=== PATIENT | female | born 1950 | race Caucasian/White ===

== ENCOUNTER → 2016-03-15 | Day surgery (SDC) | payer OTHER ==
[~2016-03-15] MED LIST: BUPIVACAINE 0.5% 30 ML SDV ONE; DEXAMETHASONE 4 MG/ML VIAL ONE; HYDROCODONE/APAP 5/325 TAB ONE; HYDROCODONE/APAP 5/325 TAB PO ONE; HYDROmorphONE/DILAUDID 1 MG/ML SYR IVP ONE; LIDOCAINE 2% JELLY 5 ML TUBE ONE; NS 500 ML IV ONE; ONDANSETRON 4 MG/2 ML VIAL IVP ONE; ONDANSETRON 4 MG/2 ML VIAL ONE; OXYCODONE/APAP 5/325 TAB PO SCH; PROPOFOL 200 MG/20 ML VIAL ONE; ceFAZolin 1 GM VIAL ONE; ceFAZolin 2 GM/DEXTROSE 100 ML IV ONE; fentaNYL 100 MCG/2 ML INJ ONE
[2016-03-15 17:13] VITALS: BP 156/109; PULSE 72; RESP 18; TEMP 98.1; O2SAT 94
--- NOTE | 2016-03-15 18:11 | EDPHY ---
H & P Stated Complaint: fell off counter/displaced l wrist fx/needs reduction/has xrays HPI/ROS: CHIEF COMPLAINT: Left wrist pain, fall HISTORY OF PRESENT ILLNESS: elapsed the counter earlier this morning striking her left wrist on the counter. States she has had significant pain over the distal left wrist. Some paresthesia of the left thumb. Tried to tough it out through the pain throughout the day until she went to urgent care this afternoon. They diagnosed her with a distal forearm fracture, placed her in a splint, and sent her to the emergency department for reduction. She has significant pain in the wrist and some paresthesias of the left thumb. No injury to the ipsilateral fingers, elbow, shoulder. No head or neck injury. No loss of conscious. No chest or back pain. No other associated complaints or modifying factors. PRIOR ORTHO INJURIES: Multiple knee injuries with arthroscopic surgeries. ESTABLISHED ORTHOPEDIST: Does not remember REVIEW OF SYSTEMS: Ten systems reviewed and are negative unless otherwise noted in the HPI EXAMINATION General Appearance: Alert, no distress Head: normocephalic, atraumatic Eyes: Pupils equal and round, no conjunctival pallor or injection EOMs intact. ENT, Mouth: Mucous membranes moist Neck: Normal inspection . No tenderness or injury Respiratory: No dyspnea or retractions. No distress Cardiovascular: Pulses normal throughout with symmetric radial 2+. Brisk cap refill in all fingers Gastrointestinal: No distention Back: non-tender, no bony abnormalities Neurological: A&O, sensory symmetric, strength symmetric Skin: Warm and dry, no rash Extremities: left upper extremity: Tender to palpation over distal wrist and distal forearm. There is crepitus. She did have a splint in place that I removed. Good cap refill. Paresthesia of the left thumb but no wrist drop. Good opposition of the thumb. No tenderness of the ipsilateral elbow, fingers or shoulder. Psychiatric: Mood and affect normal DIFFERENTIAL DIAGNOSES: Including but not limited to Fracture, fracture with displacement, fracture dislocation, contusion, sprain, hematoma MDM: left wrist injury with distal radius fracture. The patient was sent here for reduction, but upon reviewing the film from that facility I do not feel she warrants a sedation for reduction as it will likely auto sublux. She is neurovascularly intact without any wrist drop. The images are poor, thus I will obtain repeat images here to further delineate the wrist injury, I will also obtain an elbow film to rule out occult fracture. 7:30 p.m. distal radius fracture intra-articular with an associated possible scapholunate dislocation. I originally page Dr. Ramos to discuss. He informed me that will need to speak with Orthopedics. We have paged Dr. Martin for consultation. 8:00 p.m. still awaiting a return phone call from Orthopedics. But I was notified by RN that the patient became significantly more painful after x-ray, appeared pale and vagal. I did evaluate her and she was shaking from her pain. On repeat evaluation at this time, she has more paresthesia anesthesia about the radial and median distributions we administered IV fluids, IV pain medication, oral pain medication and/or monitoring. 8:30 p.m. significant pain in the arm despite the medications administered. . We did administer further medication and moved her to room 11. orthopedics has been contacted and he will see the patient shortly in the emergency department. 9:00 p.m. patient has been evaluated by Dr. Martin in the emergency department. He has Diagnosed her with acute carpal tunnel syndrome. Plans to take the OR for decompression. She is to remain in the ER until OR is ready. 10:00pm For Dr. Martin has personally taken the patient to the operating room for decompression of the acute carpal tunnel syndrome and surgical procedures as he dictates. She was neurovascularly intact upon arrival but her exam did not change while she was here. Her pain was addressed as well as IV fluid. She was admitted to Dr. Martin for urgent decompression. ED Precautions: Worsening pain. Erythema, edema, cyanosis, pallor, paresthesia or anesthesia. SUPERVISION: Patient was evaluated in conjunction with the supervising physician. Please see their note for details. Source: Patient Exam Limitations: No limitations - Personal History Current Tetanus/Diphtheria Vaccine: Yes - Medical/Surgical History Hx Asthma: No Hx Chronic Respiratory Disease: No Hx Diabetes: No Hx Cardiac Disease: No Hx Renal Disease: No Hx Cirrhosis: No Hx Alcoholism: No Hx HIV/AIDS: No Hx Splenectomy or Spleen Trauma: No Other PMH: knee surgery/appy - Social History Smoking Status: Never smoked Constitutional: Initial Vital Signs Temperature (C) 98.1 F 03/15/16 17:09 Heart Rate 72 03/15/16 17:09 Respiratory Rate 18 03/15/16 17:09 Blood Pressure 156/109 H 03/15/16 17:09 O2 Sat (%) 94 03/15/16 17:09 O2 Delivery Mode Room Air Allergies/Adverse Reactions: codeine Allergy (Verified 03/15/16 17:08) Sulfa (Sulfonamide Antibiotics) Allergy (Verified 03/15/16 17:07) Azithromycin Allergy (Uncoded 03/15/16 17:07) Home Medications: Medication Instructions Recorded NK [No Known Home Meds] 03/15/16 Medical Decision Making - Data Points Medications Given: Discontinued Medications Acetaminophen/Hydrocodone Bitart (Dunbar 5/325) 2 tab PO EDNOW ONE Stop: 03/15/16 19:36 Last Admin: 03/15/16 19:35 Dose: 2 tab Hydromorphone HCl (Dilaudid) 1 mg IVP EDNOW ONE Stop: 03/15/16 20:32 Last Admin: 03/15/16 20:38 Dose: 1 mg Sodium Chloride (Ns) 500 mls @ 0 mls/hr IV ONCE ONE PRN Reason: As Directed Stop: 03/15/16 19:37 Last Admin: 03/15/16 19:47 Dose: 500 mls Morphine Sulfate (Morphine) 4 mg IVP EDNOW ONE Stop: 03/15/16 19:36 Last Admin: 03/15/16 19:47 Dose: 4 mg Ondansetron HCl (Zofran) 4 mg IVP EDNOW ONE Stop: 03/15/16 19:36 Last Admin: 03/15/16 19:47 Dose: 4 mg Departure - Departure Disposition: [facility] Clinical Impression: Distal radial fracture Qualifiers: Encounter type: initial encounter Fracture type: closed Fracture morphology: Colles' Laterality: left Qualifier Code: (S52.532A) Colles' fracture of left radius, initial encounter for closed fracture Scapho-lunate dissociation Qualifiers: Laterality: left Qualifier Code: (M25.332) Other instability, left wrist Acute carpal tunnel syndrome Qualifiers: Laterality: left Qualifier Code: (G56.02) Carpal tunnel syndrome, left upper limb Condition: Good Referrals: Marlen Love MD [Primary Care Provider] - As per Instructions
--- NOTE | 2016-03-15 18:46 | DX ---
Left Elbow, Three Views History: Pain post trauma. Fall. Findings: No fracture, effusion or dislocation is identified. Impression: Nothing acute identified.
--- NOTE | 2016-03-15 18:49 | DX ---
Left Wrist, 4 views including a navicular view History: Pain post trauma. Findings: There is an acute intra-articular Colles' fracture of the distal radius. There is slight do rsal angulation of the distal radius. The ulnar styloid is intact. There is mild widening of the join t between the scaphoid and the lunate suggesting a scapholunate ligament injury. There is mild dorsal angulation of the lunate suggesting possible DISI. Impression: Intra-articular Colles' fracture. Sprain or tear of the scapholunate ligament.
--- NOTE | 2016-03-15 22:38 | GHP ---
[f rep st] HISTORY AND PHYSICAL DATE OF ADMISSION: 03/15/2016 CHIEF COMPLAINT: Left wrist pain, numbness and tingling. HISTORY OF PRESENT ILLNESS: The patient is a pleasant 65-year-old female who presents today for evaluation of a left wrist injury. She states she initially injured this wrist earlier today, when she fell, striking a counter. She states that she had significant left wrist pain over the distal portion of her radius. She denies any significant numbness or tingling at the time of injury. Initially, the patient tried to manage her pain throughout the day, however, she eventually went to Urgent Care this afternoon for evaluation. At that time , radiographs were taken showing a distal radius fracture with interarticular extension. At that time, the patient was sent to the emergency room to have this fracture reduced. Upon presentation to the emergency department, radiographs were taken. At which time, the patient states she had a significant increase in her pain and began to note some significant paresthesias of the left thumb, index and middle fingers. She denies any injury to the ipsilateral fingers, elbow and shoulder. She denies head or neck injury. She denies any loss of consciousness or syncope. She has no additional concerns or complaints at this time. PAST MEDICAL HISTORY: None. The patient states she has no significant past medical history. PAST SURGICAL HISTORY: This is significant for three past eye surgeries and an appendectomy, section, three arthroscopic knee surgeries and a tonsillectomy. CURRENT MEDICATIONS: None, the patient denies any current medication use though does note she uses ibuprofen on a p.r.n. basis for occasional headaches. ALLERGIES: Patient reports an allergy to sulfa medications which cause a rash, azithromycin unknown reaction and codeine which also causes a rash though patient states that she has not taken this medication for quite some time. SOCIAL HISTORY: The patient denies any current tobacco use, though does state she is a former smoker who quit in 1975. Patient states not current alcohol consumption. Patient states no current recreational drug use. FAMILY HISTORY: Patient reports her mother who is now had lung cancer and hypertension. No additional significant contributory family history is reported today. REVIEW OF SYSTEMS: A 10-point review of systems was reviewed today and is otherwise negative for any additional concerns, complaints or abnormal findings not noted in the HPI or PMH. PHYSICAL EXAMINATION: VITALS: Blood pressure is 156/109, heart rate is 72 BPM , respirations 18 per minute, O2 sats are 94% on room air. GENERAL: A healthy appearing female presents in mild distress. HEENT: NC/AT. EOMI, PERRLA. Ears and nares are patent and without discharge. OP is clear. NECK: NTTP. Full ROM. Supple. No cervical LAD noted. RESPIRATORY: CTAB. No increased WOB noted. CARDIOVASCULAR: RRR. No M/C/G/R. Pulses are normal throughout, capillary refill less than 2 seconds in finger pulps. ABDOMEN: NT/ND. No HSM. No masses. MUSCULOSKELETAL: The left upper extremity reveals TTP over the distal radius and distal forearm with crepitus. Paresthesias are noted of the left thumb, index and middle finger with decreased light touch sensation, no wrist drop is noted. Patient is able to move her thumb with good opposition. Elbow is benign. Shoulder is benign. Patient is able to flex and extend her fingers WNL compared bilaterally. SKIN: Mild swelling and ecchymosis is noted over the left distal radius. Skin is otherwise warm and dry. No rashes or lesions noted. NEUROLOGIC: A and O x3. No deficits noted. Sensory and strength are symmetric. PSYCHIATRIC: Appropriate mood and affect , patient is pleasant and cooperative with today's exam. RADIOGRAPHS: Four views of the left wrist are reviewed today revealing an interarticular distal radius fracture with dorsal angulation. Three views of the left elbow are reviewed today showing no acute fracture or dislocation. ASSESSMENT: Left wrist distal radius fracture, displaced, with likely median nerve palsy. PLAN: This patient's case and radiographs were reviewed with Dr. Martin today who also saw the patient in the emergency department. After treatment options were discussed with the patient, she has elected to undergo a carpal tunnel release, possible open reduction, internal fixation of this left distal radius fracture, and possible closed reduction pin fixation of a carpal injury. Risks and benefits of surgical intervention were reviewed with the patient today, and signed informed consent was obtained. The patient will be taken to the OR later this evening where the above procedure will be performed by Dr. Shantanu Martin. The patient will be placed on IV Ancef for antibiotic prophylaxis. The patient was accompanied by her daughter for today's visit, and all of their questions have been answered and concerns addressed. They have relayed their understanding of the current care plan and education presented today, and they appear pleased with the care they have received today. /[id number]/MODL MTDD
--- NOTE | 2016-03-15 23:26 | PDCONSULT ---
Park Superintendent Note: Pre op dx: Acute severe carpal tunnel syndrome, DRF and SLIL tear Post op Dx Same Surgeon: Vincent Martin Procedure: Extended CTR, Cr pin fix drf and SLIL tear Findings Median nerve hemorrhagic and compressed by hematoma, 1.25mm K wires x 5 for fixation EBL minimal RR in stable condition
--- NOTE | 2016-03-16 06:19 | GOP ---
[f rep st] OPERATIVE REPORT DATE OF OPERATION: 03/15/2016 SURGEON: Shantanu Martin MD PREOPERATIVE DIAGNOSIS: 1. Left distal radius fracture. 2. Left wrist scapholunate interosseous ligament tear. 3. Left wrist acute severe carpal tunnel syndrome. POSTOPERATIVE DIAGNOSIS: 1. Left distal radius fracture. 2. Left wrist scapholunate interosseous ligament tear. 3. Left wrist acute severe carpal tunnel syndrome. PROCEDURE PERFORMED: 1. Extended carpal tunnel release, left median nerve. 2. Closed reduction and percutaneous pin fixation, distal radius fracture. 3. Closed reduction and percutaneous pin fixation, scapholunate interosseous ligament disruption. FINDINGS: The transverse carpal ligament was released. I extended this proximally into the forearm. There was extensive hematoma within the carpal tunnel, and this was evacuated. The median nerve wa s hemorrhagic throughout its course under the transverse carpal ligament. The distal radius was redu kim anatomically and held with four 1.25 mm Kirshner wires. I reduced the scapholunate interval and also pinned this with a 1.25 mm K-wire. INDICATIONS: The patient is a 65-year-old woman who inadvertently fell today off a counter while in her house. She was found to have a nondisplaced distal radius fracture. They sent her from a local urgent care facility to come in to [facility] for reduction of her wrist. Repeat x-r ays were taken, and she developed immediate onset of numbness and paresthesias in the median nerve di stribution which, within 20-30 minutes, turned into anesthetic in the median nerve distribution. Due to her intractable pain and the loss of sensation in her fingers, she was brought urgently to the op erating room for definitive management. DESCRIPTION OF PROCEDURE: After routinely checking the patient's identification and consent, and a s uccessful induction of LMA general anesthetic, the patient's left upper extremity was prepped and ellis ped in the usual standard fashion. Exsanguinated the limb with an Esmarch wrap, and the pneumatic to urniquet previously placed about the proximal left arm was inflated to 250 mmHg. A surgical time-out was completed. A longitudinal incision in the thenar flexion crease in the palm extending in a zig- zag fashion across the wrist flexion crease and then longitudinally just to the radial side of the pa lmaris longus tendon was carried sharply through the skin and subcutaneous tissue. I carefully ident ified the palmar cutaneous branch of the median nerve proximally. I then divided the antebrachial fa scia and the transverse carpal ligament. The above findings were noted. After I had evacuated the h ematoma, I thoroughly irrigated the wound. I closed the subcutaneous layer with 4-0 Vicryl and the s kin with interrupted sutures of 4-0 nylon. I now reduced the wrist using manual distraction of a volar-directed force in the distal fragment, as well as an ulnar-directed force. I visualized this with a small FluoroScan unit. I placed 1.25 mm K-wires from the radial styloid just under the subchondral surface and then gaining purchase on the u lnar side cortex of the radius proximal to the fracture plane. Three pins were placed through the ra dial styloid in this fashion with diverting trajectories. A 4th pin was placed from proximal radial to distal ulna, ending just under the lunate fossa of the distal radius, and lastly, I closed the sca pholunate interval with a K-wire that I pushed through the skin and held this in reduced fashion whil e I passed an additional 1.25 mm K-wire from the scaphoid into the lunate. Excellent purchase was no silvina, and I closed the scapholunate interval and re-established the normal alignment of the 2 bones. I bent over the pins and trimmed them above the skin surface. 0.25% Marcaine plus epinephrine were i nfiltrated around the surgical incision and around the radial border of the wrist. A sterile bulky d ressing was applied, followed by compressive wrap. The patient was transferred to the recovery area in excellent condition. She tolerated the procedure well. There were no complications. /[id number]/MODL
== END | disposition home or self-care (01) ==
LOC: FSGY 16:58
PROVIDERS: ATTEND Orthopaedic Surgery Hand Surgery
PROC: 01N50ZZ Release Median Nerve, Open Approach (ICD-10-PCS; principal; 2016-03-15 22:11)
PROC: 0PSH34Z Reposition Right Radius with Internal Fixation Device, Percutaneous Approach (ICD-10-PCS; principal; 2016-03-15 22:11)
DX: S52.532A Colles' fracture of left radius, initial encounter for closed fracture (principal); S63.592A Other specified sprain of left wrist, initial encounter; W01.10XA Fall on same level from slipping, tripping and stumbling with subsequent striking against unspecified object, initial encounter; G56.02 Carpal tunnel syndrome, left upper limb
CPT/HCPCS: 25606; 64721; 73080; 73110; 99285; C1769; J0690; J1100; J1170; J2405; J2704; J3010